=== PATIENT | female | born 1940 | race Caucasian/White ===

== ENCOUNTER 2017-03-03 12:24 | Day surgery (SDC) | payer MEDICARE, OTHER ==
[2017-03-03] VITALS (8 sets, daily range): BP systolic 118–157; BP diastolic 63–83; PULSE 79–88; TEMP 98.1
[~2017-03-03] VITALS: Ht 160 cm; Wt 60.5 kg
[2017-03-03] MEDS ORDERED: PREDNISONE10 MG PO (12:57)
[2017-03-03] MEDS ORDERED: LOPRESSOR 550 MG/TAB PO (12:58)
[2017-03-03] MEDS ORDERED: EFFEXOR-XR150 MG PO (12:58)
[2017-03-03] MEDS ORDERED: TYLENOL 500MG500 MG PO (12:59)
[2017-03-03] MEDS ORDERED: CALCIUM 600-D 61 TAB PO (13:00)
[2017-03-03] MEDS ORDERED: FLONASE NASAL S16 GM NS (13:01)
[2017-03-03] MEDS ORDERED: B-121000 MCG PO (13:01)
[2017-03-03] MEDS ORDERED: FOLIC ACID 11 MG/TA1 PO (13:02)
[2017-03-03] MEDS ORDERED: AMARYL4 MG PO (13:03)
[2017-03-03] MEDS ORDERED: GLUCOPHAGE1000 MG PO (13:04)
[2017-03-03] MEDS ORDERED: ADVIL200 MG PO (13:04)
[2017-03-03] MEDS ORDERED: ZOCOR 20MG20 MG PO (13:06)
== END 2017-03-03 14:00 | disposition home or self-care (01) ==
LOC: SDCO 12:24
DX: J47.1 Bronchiectasis with (acute) exacerbation (principal); E78.5 Hyperlipidemia, unspecified; E11.9 Type 2 diabetes mellitus without complications; I10 Essential (primary) hypertension; Z86.14 Personal history of Methicillin resistant Staphylococcus aureus infection; M06.9 Rheumatoid arthritis, unspecified; Z87.891 Personal history of nicotine dependence; Z79.899 Other long term (current) drug therapy; Z79.84 Long term (current) use of oral hypoglycemic drugs; Z79.52 Long term (current) use of systemic steroids
CPT/HCPCS: J0456; J2704; J2920; J7050